=== PATIENT | female | born 1980 | race Caucasian/White ===

== ENCOUNTER 2023-01-08 14:51 | Outpatient (CLI) | payer OTHER | END 2023-01-08 14:52 | disposition home or self-care (01) | LOC: CSHMRI 14:51 | PROVIDERS: ATTEND Psychiatry & Neurology Sleep Medicine | DX: G43.909 Migraine, unspecified, not intractable, without status migrainosus (principal); E23.6 Other disorders of pituitary gland; J34.89 Other specified disorders of nose and nasal sinuses | CPT/HCPCS: 70551 ==